=== PATIENT | female | born 1950 | race Caucasian/White ===

== ENCOUNTER 2017-03-05 18:54 | Inpatient (IN) | payer BC ==
--- NOTE | ~2017-03-05 | CN ---
Consultation Report [facility] [address] [place]. [address] NAME: CHAVO GARCIA : 48 STATUS : ADM Yung PAT#: [id number] AGE: 66 ADM/REG DATE : 03/05/17 MR#: [id number] REPORT SERV DATE: 03/06/17 DICTATED BY: WYATT JARAMILLO DATE: 03/06/17 REPORT STATUS : Draft TRANSCRIBED BY: MODL DATE: 03/06/17 CONSULT NOTE DATE OF CONSULTATION: 03/06/2017 CHIEF COMPLAINT: Hypoxemia in a patient with a probable entrapped right lung. HISTORY OF PRESENT ILLNESS: Mrs. Chavo Garcia is a very pleasant 66-year-old white female with a past medical history significant for ER/TN positive right breast cancer status post lumpectomy and radiation, gastritis, and hypertension, who presents to [facility] for an elective right-sided thoracentesis. Should be noted that Mrs. Garcia has not been hospitalized recently and has done quite well as an outpatient. Mrs. Garcia is not currently followed by patient financial representative. She is not usually require supplemental oxygen. She is on no pulmonary medications. She describes herself as a never smoker. She states that her does complain of her periodic snoring, but otherwise denies symptomatology related to obstructive sleep apnea. She describes her exercise tolerance prior to this recent illness is being excellent. Being able to walk over a city block before experiencing any shortness of breath. Again, Mrs. Garcia was diagnosed with ER/TN positive breast cancer in 1993. This is grade 1 invasive ductal carcinoma of the right breast. She did receive lumpectomy and radiation therapy. She was given five years of tamoxifen therapy. In November of this year, she did have some issues related to gastritis and eventually underwent upper endoscopy which confirmed these findings. She was placed on H2-blockers then later a PPI with some improvement in her symptomatology. During this time, she also experienced approximately a 20-pound weight loss. More recently, she developed shortness of breath that she essentially dismissed as secondary to her "getting older." She did eventually notice a knot in the crease of her lower right breast. She did eventually undergo a shave biopsy at least two weeks ago which demonstrated invasive carcinoma. It was unclear whether this was a primary eccrine carcinoma or possibly a delayed metastatic deposit from previous breast cancer. She was referred to Dr. Candido Penny, who did obtain a CT of the chest. By her report, this showed a large right pleural effusion, mediastinal lymphadenopathy, possible liver and spine lesions as well. It is thought at this time that she would benefit from a right-sided thoracentesis not only for therapeutic indications but for diagnostic information as well. She did eventually present to [facility] where she underwent a right thoracentesis under the care of Dr. Matty Hagan. He was able to remove 1.7 L of exudative pleural fluid. Followup imaging did suggest a pneumothorax ex vacuo and probable entrapped lung. The patient was admitted and placed on supplemental oxygen. For the aforementioned reasons, she has been referred to the Pulmonary Service for further assessment. Currently, Mrs. Garcia is being supported on 2 L of supplemental oxygen. Surprisingly, she denies any shortness of breath. She has no right-sided pleuritic pain. She is not producing any purulent sputum or wheezing. She has had no episodes of hemoptysis. She has Consultation Report [address] [address] NAME: CHAVO GARCIA : 48 STATUS : ADM Yung PAT#: [id number] AGE: 66 ADM/REG DATE : 03/05/17 MR#: [id number] REPORT SERV DATE: 03/06/17 DICTATED BY: WYATT JARAMILLO DATE: 03/06/17 REPORT STATUS : Draft TRANSCRIBED BY: LAZARA DATE: 03/06/17 had no vocal changes. She denies childhood history of asthma. She denies recurrent pneumonias. Again, she describes herself as a never smoker. The patient currently denies any murmurs, angina, or palpitations. That being said, she does have a history of some occasional tachycardia. She denies any orthopnea or paroxysmal nocturnal dyspnea or dependent edema. In regard to constitutional symptoms, she has had some weight loss as of late. She denies any fever chills, nausea, vomiting. She does have occasional reflux symptoms. She denies any abdominal pain or edema. PAST MEDICAL HISTORY: 1. Right breast cancer, status post lumpectomy and radiation therapy in 1993-tumor was ER/PE positive. 2. Gastritis. 3. Hypertension. PAST SURGICAL HISTORY: 1. Skin biopsy. 2. Lumpectomy. 3. Total abdominal hysterectomy. FAMILY HISTORY: The patient states there is a family history of breast cancer. She denies any known lung disease within the family. SOCIAL HISTORY: The patient is . She has two daughters, who are in good health. She previously worked at [employer]. She did have a who worked in coal mining for a period of time. However, she denies any significant exposures. TOBACCO/ALCOHOL: As previously mentioned, the patient describes herself as a never smoker. She denies any recent alcohol or illicit drug use. MEDICATIONS: Flecainide 50 mg, lansoprazole 30 mg, Hyzaar 100/25, metoprolol 25 mg. ALLERGIES: THE PATIENT HAS NO KNOWN DRUG ALLERGIES. REVIEW OF SYSTEMS: Complete review of systems was performed. The pertinent positives and negatives contained within the body of the HPI. PHYSICAL EXAMINATION: VITAL SIGNS: Blood pressure is 107/64, heart rate 79, T-max is 97.8, respiratory rate is 16, SpO2 is 97% on 2 L nasal cannula. GENERAL: Mrs. Chavo Garcia is a very pleasant 66-year-old white female, who is not currently exhibiting any signs of acute distress. Consultation Report [address] [address] NAME: CHAVO GARCIA : 48 STATUS : ADM Yung [facility]#: [id number] AGE: 66 ADM/REG DATE : 03/05/17 MR#: [id number] REPORT SERV DATE: 03/06/17 DICTATED BY: WYATT JARAMILLO DATE: 03/06/17 REPORT STATUS : Draft TRANSCRIBED BY: MODTrinity DATE: 03/06/17 SKIN: Skin with appropriate texture and turgor. On the crease line below her right breast, there is a well healing area from her previous shave biopsy. There is some nodularity to palpation at this point. HEENT: Head: Skull is normocephalic, atraumatic. Facies symmetric. No masses or lesions. Eyes: Sclerae anicteric. Conjunctivae pink without exudates. Ears: Auricles and tragus without pain to palpation. Nose: Bilateral nasal patency. Throat: Dentition in good repair. Lips, oral mucosa, tongue, palate, and pharynx pink and moist without lesions. NECK: Neck is supple. Trachea midline. No cervical lymphadenopathy appreciated. THORAX/LUNGS: Thorax is symmetric with equal chest rise. Diminished breath sounds in the right. Hyperresonance to percussion in the right lung field in comparison to dullness to percussion in the right lower. CARDIOVASCULAR: Regular rate and rhythm. No murmurs, rubs, or gallops. ABDOMEN: Soft, nondistended, nontender. PERIPHERAL VASCULAR: There is no edema. MUSCULOSKELETAL: Full AROM and PROM in all joints. NEUROLOGIC: Cranial nerves 2 through 12 grossly intact. Good muscle bulk and tone bilaterally. PSYCHIATRIC: The patient demonstrates good judgment and insight. The patient is alert and oriented x3. ACCESSORY DATA: Reveals a potassium of 3.2. White blood cell count is 11,100, hemoglobin and hematocrit 12.2 and 35.5. Chest x-ray reveals a right-sided hydropneumothorax. Pleural fluid has a protein of 4.1 in comparisons serum protein of 6.7. Cultures are negative to date. Pathology is pending. IMPRESSION: 1. Acute hypoxemic respiratory failure, currently on 2 L nasal cannula. 2. Right pneumothorax ex vacuo secondary to lung entrapment. 3. Large right exudative pleural effusion, status post thoracentesis which is concerning for malignancy. 4. 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 5. History of ER/TN positive breast cancer, status post lumpectomy, radiation, and tamoxifen. 6. Gastritis. PLAN: 1. At this time, the patient has been appropriately placed on supplemental oxygen. We will attempt to wean this as tolerated. 2. In regard to the patient's lung entrapment, if we were able to exclude the possibility of malignancy, we would recommend VATS as this is a more definitive therapy for lung entrapment. That being said, we will follow up with pathology to see if we can get an initial read on where this effusion is in fact malignant. Moving forward, cell type would help differentiate whether this is a process that would be best treated by VATS or possibly even PleurX catheter placement for palliative means. 3. Apparently, there is a CT scan which does describe metastatic disease. We will attempt Consultation Report [place] [address] [address] NAME: CHAVO GARCIA : 48 STATUS : ADM Yung PAT#: [id number] AGE: 66 ADM/REG DATE : 03/05/17 MR#: [id number] REPORT SERV DATE: 03/06/17 DICTATED BY: WYATT JARAMILLO DATE: 03/06/17 REPORT STATUS : Draft TRANSCRIBED BY: MODL DATE: 03/06/17 to have this imported into our PAC system. 4. In regard to the patient's recent skin biopsy, we will ask to have that pathology report imported as well. The aforementioned impression and plan has been discussed with Dr. Dolan, who will follow further recommendations. We thank you for this consult and look forward to participating in the care of Mrs. Chavo Garcia. WILLIAM/LAZARA Wyatt Jaramillo PA-C / [id number] CC: Sarah Mosley M.D.
--- NOTE | ~2017-03-05 | DS ---
Discharge Summary [facility] [address] [place]. [address] NAME: CHAVO CONTRERAS : 48 STATUS : DIS Yung PAT#: [id number] AGE: 66 ADM/REG DATE : 03/05/17 MR#: [id number] REPORT SERV DATE: 03/09/17 DICTATED BY: KHOI HERNANDEZ DATE: 03/08/17 REPORT STATUS : Draft TRANSCRIBED BY: MODL DATE: 03/08/17 ADMISSION DATE: 03/05/2017 DISCHARGE DATE: 03/08/2017 DISCHARGE DIAGNOSES: 1. 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 Final pathology is pending. 2. Ex vacuo pneumothorax post thoracentesis. 3. Hypertension. 4. Tachycardia. 5. Trapped lung. 6. Possibility of a recurrent effusion due to trapped lung. CONSULTANTS DURING THIS HOSPITALIZATION: Dr. Jourdan Dolan of Pulmonology, Dr. Kalen Sevilla of Cardiothoracic Surgery, Dr. Damian Hopkins of Hematology Oncology, and Dr. Ty Hagan of Interventional Radiology. INVASIVE PROCEDURES DONE DURING THIS HOSPITALIZATION: Ultrasound-guided thoracentesis with complications of trapped lung and postprocedure attempt to reinflate the lung by Dr. Ty Hagan on 03/05/2017. BRIEF HISTORY OF PRESENT ILLNESS: The patient is a 66-year-old white female, who had breast cancer 23 years ago, underwent lumpectomy and chemoradiation at that time. Was cancer free for 23 years, then had a recurrent pleural effusion, and came to the hospital as an outpatient for thoracentesis for diagnostic purposes. Post centesis, she had what appeared to be pneumothorax, so she was referred to the Hospitalist Service for further treatment and evaluation. Please refer to my H and P dictated on 03/05/2017 regarding details of her admission. HOSPITAL COURSE: After being admitted to the hospital, immediately Pulmonology was asked to see the patient. Pulmonology saw the patient in consultation and agreed that this was trapped lung and not pneumothorax. No chest tubes were inserted. Regarding the reexpansion of the lung, it would depend on what type of malignancy she had. She underwent scanning of her chest, abdomen, and pelvis. She had multiple liver lesions, so a liver biopsy was ordered. A liver biopsy was done by Dr. Ty Hagan and it was positive for malignancy. Final pathology report is still pending. Over the last three days, multiple physicians and myself have had long discussions with the family regarding options and plans of treatment. At this time, all consultants and myself agree that the reexpansion of the left lung would depend on the prognosis of her cancer. If her prognosis is greater than six months, it would be prudent to subject the patient to decortication and reexpansion of the lung. This was agreeable to Cardiothoracic Surgery in their opinion as well. This was agreeable to Pulmonology in their opinion as well and this was agreeable to Oncology as well. I discussed that with the patient and the family at the bedside and currently she is feeling well enough that she wants to go home, return back to see Dr. Penny in the outpatient setting, and then undergo future procedure depending on the prognosis of her cancer. Discharge Summary [address] [address] NAME: CHAVO CONTRERAS : 48 STATUS : DIS Yung PAT#: [id number] AGE: 66 ADM/REG DATE : 03/05/17 MR#: [id number] REPORT SERV DATE: 03/09/17 DICTATED BY: KHOI HERNANDEZ DATE: 03/08/17 REPORT STATUS : Draft TRANSCRIBED BY: LAZARA DATE: 03/08/17 DISCHARGE DISPOSITION: Home. DISCHARGE ACTIVITY: As tolerated. DISCHARGE DIET: Low sodium diet. DISCHARGE MEDICATIONS: Vitamin D 1000 units once daily, flecainide 75 mg once every 12 hours, multivitamins one tablet daily, Lopressor XL 12.5 mg twice daily, Prevacid 30 mg twice daily, losartan 100/25 mg one tablet every morning, and Tums 500 mg two tablets daily. DISCHARGE FOLLOWUP: With Dr. Candido Penny next week for further discussion of the biopsy results from the liver biopsy. More than 30 minutes spent planning this patient's discharge, reconciling medications, discussing hospital care, and followup with the patient answering all questions regarding her plan of care in the near future and documenting this discharge. DICTATED BY: Sarah Mosley/LAZARA Khoi Hernandez M.D. / [id number] CC: Sarah Mosley M.D. James Headrick Jr., M.D. Derek W Holland, M.D.
--- NOTE | ~2017-03-05 | CN ---
Consultation Report [facility] [address] [place]. [address] NAME: CHAVO CONTRERAS : 48 STATUS : DIS IN PAT#: [id number] AGE: 66 ADM/REG DATE : 03/05/17 MR#: [id number] REPORT SERV DATE: 03/11/17 DICTATED BY: MARCO SEVILLA JR. DATE: 03/11/17 REPORT STATUS : Draft TRANSCRIBED BY: MODL DATE: 03/11/17 CONSULTATION HISTORY AND PHYSICAL DATE OF CONSULTATION: 03/08/2017 REASON FOR CONSULTATION: Right-sided pneumo ex vacuo status post thoracentesis. BRIEF HISTORY: This is a 66-year-old white female with history of breast cancer who has been cancer-free for several years until recently when she had a nodule appear on her right breast and had an excisional biopsy done by her chief dispatcher. Pathology demonstrated eccrine tumor. Following the pathology, she saw Dr. Penny, and on examination, it was noted that she had a large right pleural effusion. Dr. Penny sent her for a thoracentesis and a thoracentesis was performed, at which they brought out a large amount of pleural fluid; however, she had a pneumo ex vacuo. We are asked to see her for recommendations regarding this. PAST MEDICAL HISTORY: Significant for tachycardia, hypertension, gastritis, history of right breast cancer, status post lumpectomy and radiation therapy, treated approximately 20 years ago. PAST SURGICAL HISTORY: Significant for right breast lumpectomy and hysterectomy and recent right breast excisional biopsy. SOCIAL HISTORY: She is and denies any alcohol, tobacco use, or illicit drug use. FAMILY HISTORY: Significant for a mother with breast cancer and father with heart disease. ALLERGIES: NO KNOWN DRUG ALLERGIES. HOME MEDICATIONS: Include flecainide 75 mg every 12 hours, Prevacid 30 mg twice daily, Hyzaar 100/25 one tablet daily, Lopressor 12.5 mg p.o. twice daily. REVIEW OF SYSTEMS: The patient denies any shortness of breath, fatigue, or chest pain. A complete 12-point review of systems was performed. All other systems negative except for the above-mentioned pertinent positives in the history of present illness. PHYSICAL EXAMINATION: GENERAL: This is a 66-year-old white female who is alert and oriented, in no acute distress. VITAL SIGNS: Oxygen saturation 97% on room air, blood pressure 101/56, afebrile, heart rate 84. Weight 69 kg, height 162 cm. HEENT: Normocephalic, atraumatic. Pupils equal, round, and reactive to light. Ears, nose, and throat without lesion or exudate. Consultation Report [place] [id number] [place]. [address] NAME: CHAVO CONTRERAS : 48 STATUS : DIS IN PAT#: [id number] AGE: 66 ADM/REG DATE : 03/05/17 MR#: [id number] REPORT SERV DATE: 03/11/17 DICTATED BY: MARCO SEVILLA JR. DATE: 03/11/17 REPORT STATUS : Draft TRANSCRIBED BY: LAZARA DATE: 03/11/17 NECK: Supple. No lymphadenopathy, JVD, or bruits. Trachea midline. No obvious goiter. CHEST: Symmetrical with no obvious chest wall deformities. CARDIOVASCULAR: Regular rate and rhythm. S1, S2. No murmurs or gallops. RESPIRATORY: Decreased breath sounds throughout the right, clear on the left. ABDOMEN: Soft, nontender, with positive bowel sounds in all four quadrants. No hepatosplenomegaly. : The patient voids without difficulty. Further examination was deferred. EXTREMITIES: No cyanosis or edema. SKIN: Warm and dry with normal turgor. No obvious breakdown or lesions noted. There is scarring on the right breast from recent excisional biopsy. MUSCULOSKELETAL: No obvious kyphosis or scoliosis. PSYCHIATRIC: Normal affect. She is pleasant. DATA: Laboratories dated 03/07/2017, sodium 132, potassium 3.9, BUN 13, creatinine 0.83, glucose 123. White blood cell count 11.8, hemoglobin 11.6, hematocrit 34.0, and platelet count 354. CT-guided thoracentesis dated 03/05/2017 showing several soft tissue densities in the atelectatic right lung, discrete nodule within the right upper lobe measuring 7 mm, several peripheral soft tissue densities involving the periphery of the atelectatic lung. There are tiny 2 mm nodules in the right lung, several scattered throughout the left lung, multiple sclerotic lesions in the osseous structures involving the clavicles and thoracic vertebrae, numerous low-density lesions throughout the liver consistent with metastatic disease, nodular thickening of the parietal pleura. CT-guided needle biopsy of the liver dated 03/07/2017 showing positive touch prep for malignancy. PROBLEM LIST: 1. 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 2. Liver lesion with positive touch prep. 3. Tachycardia. 4. Hypertension. 5. Gastritis. IMPRESSION AND PLAN: This is a 66-year-old female who presented with a large right pleural effusion and pneumo ex vacuo status post thoracentesis. She has a history of breast cancer approximately 20 years ago and recently had a right breast lesion, excised by her chief dispatcher that was positive for eccrine tumor and there are multiple sites of possible metastasis and she underwent a liver biopsy which demonstrated malignancy on touch prep. We were asked to see her for management of her right pneumothorax ex vacuo. Her lung is consolidated and atelectatic which possibly could represent a bronchial obstruction and the patient is to go home this afternoon while waiting for final pathology of the liver biopsy. We will arrange next week for a bronchoscopy with right thoracoscopy and placement of a PleurX catheter. We will contact the patient on Friday of next week and arrange this for later on. Thank you for this consultation. Consultation Report [address] [place]. [address] NAME: CHAVO CONTRERAS : 48 STATUS : DIS IN PAT#: [id number] AGE: 66 ADM/REG DATE : 03/05/17 MR#: [id number] REPORT SERV DATE: 03/11/17 DICTATED BY: MARCO SEVILLA JR. DATE: 03/11/17 REPORT STATUS : Draft TRANSCRIBED BY: LAZARA DATE: 03/11/17 DICTATED BY: Petrona Steward NP AM/LAZARA Marco Sevilla Jr., M.D. / [id number] CC: Sarah Mosley M.D.
--- NOTE | ~2017-03-05 | HP ---
History And Physical [place] [id number] [facility] [place] [address] NAME: CHAVO CONTRERAS : 49 STATUS : ADM Yung PAT#: [id number] AGE: 66 ADM/REG DATE : 03/05/17 MR#: [id number] REPORT SERV DATE: 03/05/17 DICTATED BY: KHOI HERNANDEZ DATE: 03/05/17 REPORT STATUS : Draft TRANSCRIBED BY: MODL DATE: 03/05/17 DATE OF ADMISSION: 03/05/2017 CHIEF COMPLAINT: Pneumothorax. HISTORY OF PRESENT ILLNESS: The patient is a 66-year-old white female, who has been followed by Dr. Candido Penny and has been cancer-free for the last two or three years. Recently started having problems and a nodule came up under her right breast. 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 Penny, and workup there revealed a large right-sided pleural effusion and widespread metastatic disease. So, Dr. Pneny referred her for thoracentesis to get a primary source of her cancer. Today, Dr. Ty Hagan performed her thoracentesis, and post-thoracentesis, she was noted to have a large ex-vacuo normal thorax. Dr. Hagan tried to do air suction with a needle and reinflate the lung, however, was not successfully done. The patient was then referred to the Hospitalist Service for further treatment, evaluation, and observation for a possible trapped lung due to metastatic disease and a chronic pleural effusion. This patient at the time of my evaluation denied any chest pain, shortness of breath, nausea, vomiting, fever, chills, or any other constitutional symptoms. REVIEW OF SYSTEMS: A 14-point review of systems is negative except this patient reports that she has lost 22 pounds of weight since November because she has been diagnosed to have gastritis. PAST MEDICAL HISTORY: Significant for tachycardia, hypertension, and gastritis; prior history of breast cancer in the right breast, status post lumpectomy with radiation therapy 23 years ago. PAST SURGICAL HISTORY: Significant for right breast lumpectomy and a hysterectomy. ALLERGIES: NO KNOWN DRUG ALLERGIES. HOME MEDICATIONS: Include Tums 500 mg two tablets daily, vitamin D 1000 units p.o. daily, flecainide 75 mg every 12 hours, Prevacid 30 mg twice daily, Hyzaar 100/25 one tablet every morning, Lopressor XL 12.5 mg p.o. twice daily, multivitamins one tablet daily. SOCIAL HISTORY: She lives with her . , fully functional in all ADL. No use of alcohol, tobacco, or illicit substances. FAMILY HISTORY: Mother with breast cancer. Father with heart disease. PHYSICAL EXAMINATION: GENERAL: White female, lying on a gurney, appears to be in no obvious respiratory distress. She is awake, alert, and she is oriented. VITAL SIGNS: At this time are stable. She is saturating 97% on room air. HEENT: Head is normocephalic, atraumatic. Pupils are equal, round, and reactive to light. Extraocular muscles are intact. Sclerae are anicteric. Conjunctivae normal. Oropharynx History And Physical [address] [address] NAME: CHAVO CONTRERAS : 49 STATUS : ADM Yung PAT#: [id number] AGE: 66 ADM/REG DATE : 03/05/17 MR#: [id number] REPORT SERV DATE: 03/05/17 DICTATED BY: KHOI HERNANDEZ DATE: 03/05/17 REPORT STATUS : Draft TRANSCRIBED BY: LAZARA DATE: 03/05/17 without lesion. Tongue protrusion midline. Uvula midline. NECK: Supple. No jugular venous distention. No carotid bruits or thyromegaly is appreciated. No lymphadenopathy in the neck is palpable. HEART: Regular rate rhythm. No murmurs, rubs, or gallops are heard. PMI nondisplaced. LUNGS: Fairly clear to auscultation on the left lung. Diminished breath sounds on the right lung, especially anteriorly and in the axillary area. ABDOMEN: Soft, nontender. Good bowel sounds. No rebound or guarding. No organomegaly. EXTREMITIES: Without cyanosis, clubbing, or edema. NEUROLOGIC: Seems to be grossly intact. LABORATORY DATA: All labs are pending at this time. IMPRESSION: 1. Right lung pneumothorax post thoracentesis. 2. Possibility of trapped lung. 3. Metastatic cancer with unknown primary, most likely breast cancer recurrence. 4. Hypertension. 5. Tachycardia. 6. Gastritis. PLAN: The patient will be admitted for observation. Pulmonary consultation will be done. I have already discussed her care with Dr. Dolan, and he will see her in the morning for further evaluation and need for possibility of decortication. We will ask Hematology- Oncology as they would need to give us an opinion if the patient is a good candidate for any further therapy before proceeding with thoracoscopy and decortication. We will check routine labs. The patient remains a full code. I have discussed her care with the patient. I have discussed the care with the patient and the at the bedside. They understand and agree with the current plan of care. LUNA/LAZARA Khoi Hernandez M.D. / [id number] CC: Sarah Mosley M.D. Derek W Holland, M.D.
[2017-03-05 11:35] LABS: PARTIAL THROMBO TIME 25.8 SEC (22.5-37.2); PROTIME (NOT ORD) 12.9 SEC (12.0-14.5)
[2017-03-05 15:53] LABS: LDH BODY FLUID (NOT ORD) 102 U/L; PROTEIN BODY FLUID 4.1 G/DL
[2017-03-05 16:38] LABS: BF TOTAL CELL CT (NOT ORD 89 /MM3; BODY FLUID RBC (NOT ORD) 556 /MM3
[2017-03-05 17:38] LABS: BD FL LYMPH (NOT ORD) 72 %; BF BASO (NOT OF) 0 %; BF LARGE MONONUCLEAR 28 %; BODY FLUID EOS (NOT ORD) 0 %; BODY FLUID SEG (NOT ORD) 0 %
[2017-03-05 17:39] LABS: BD FL SOURCE (NOT ORD) RT PLEURAL
[~2017-03-05 18:54] MED LIST: FLECAINIDE50 MG PO; HYZAAR 100/25 T1 TAB PO; MULTIVITAMI1 PO; PREV30 PO; TOPXL25 PO; TUMSROLL PO; VITAMIN D31000 UNIT PO; ZESTORETIC PO
[2017-03-06 04:22] LABS: BASOPHILS 0.2 %; BASOPHILS ABSOLUTE 0.02 10/3/uL (0.0-0.16); EOSINOPHILS 0.7 %; EOSINOPHILS ABSOLUTE 0.08 10/3/uL (0.0-0.53); HEMATOCRIT 35.5 % (36.0-48.0); HEMOGLOBIN 12.2 g/dL (12.0-16.0); IMMATURE GRANULOCYTES 0.2 %; IMMATURE GRANULOCYTES ABSOLUTE 0.02 10/3/uL (0.0-0.11); LYMPHOCYTES 16.3 %; LYMPHOCYTES ABSOLUTE 1.81 10/3/uL (0.67-4.30); MEAN CORPUS HGB CONC 34.4 g/dL (32.0-36.0); MEAN CORPUSCULAR HEMOGLOB 31.5 pg (26.0-34.0); MEAN CORPUSCULAR VOLUME 91.7 fL (80-100); MEAN PLATELET VOLUME 8.7 fL (9.2-13.0); MONOCYTES 7.4 %; MONOCYTES ABSOLUTE 0.82 10/3/uL (0.21-1.20); NEUTROPHILS 75.2 %; NEUTROPHILS ABSOLUTE 8.37 10/3/uL (2.02-8.40); PLATELET COUNT 371 10/3/uL (150-400); RED CELL COUNT 3.87 10/6/uL (4.0-5.6); WHITE BLOOD CELLS 11.1 10/3/uL (4.5-10.5)
[2017-03-06 04:31] LABS: MANUAL DIFF NO %
[2017-03-06 04:44] LABS: A/G RATIO 0.9 (0.7-1.9); ALKALINE PHOSPHATASE 87 U/L (45-117); BUN (BLOOD UREA NITROGEN) 17 MG/DL (6-23); CALCIUM, SERUM 8.9 MG/DL (8.5-10.4); CHLORIDE, SERUM 96 MMOL/L (96-112); CO2 (CARBON DIOXIDE) 30 MMOL/L (24-34); CREATININE 0.88 MG/DL (0.55-1.02); GFR AFRICAN AMERICAN 79 ML/MIN (>=60); GFR NON AFRICAN AMERICAN 68 ML/MIN (>=60); GLOBULIN 3.5 G/DL (2.5-4.1); POTASSIUM, SERUM 3.2 MMOL/L (3.5-5.3); SGOT(AST) 22 U/L (5-40); SGPT(ALT) 30 U/L (5-65); SODIUM, SERUM 133 MMOL/L (135-148); TOTAL BILIRUBIN 0.4 MG/DL (0-1.2); TOTAL PROTEIN 6.7 G/DL (6.0-8.5)
[2017-03-06 04:45] LABS: ALBUMIN 3.2 G/DL (3.5-5.0); GLUCOSE, SERUM 110 MG/DL (60-99)
[2017-03-07 05:26] LABS: BASOPHILS 0.3 %; BASOPHILS ABSOLUTE 0.03 10/3/uL (0.0-0.16); EOSINOPHILS 0.8 %; HEMOGLOBIN 11.6 g/dL (12.0-16.0); IMMATURE GRANULOCYTES 0.3 %; IMMATURE GRANULOCYTES ABSOLUTE 0.04 10/3/uL (0.0-0.11); LYMPHOCYTES 14.4 %; MEAN CORPUS HGB CONC 34.1 g/dL (32.0-36.0); MEAN CORPUSCULAR HEMOGLOB 31.9 pg (26.0-34.0); MEAN CORPUSCULAR VOLUME 93.4 fL (80-100); MEAN PLATELET VOLUME 8.8 fL (9.2-13.0); MONOCYTES 8.1 %; MONOCYTES ABSOLUTE 0.96 10/3/uL (0.21-1.20); NEUTROPHILS 76.1 %; NEUTROPHILS ABSOLUTE 8.96 10/3/uL (2.02-8.40); PLATELET COUNT 354 10/3/uL (150-400); RBC DISTRIBUTION WIDTH 12.1 % (12.0-16.0); RED CELL COUNT 3.64 10/6/uL (4.0-5.6); WHITE BLOOD CELLS 11.8 10/3/uL (4.5-10.5)
[2017-03-07 05:28] LABS: MANUAL DIFF NO %
[2017-03-07 05:35] LABS: INTERNATIONAL NORMAL RATI 1.1 UNITS (-); PROTIME (NOT ORD) 14.1 SEC (12.0-14.5)
[2017-03-07 05:43] LABS: BUN (BLOOD UREA NITROGEN) 13 MG/DL (6-23); CHLORIDE, SERUM 100 MMOL/L (96-112); CO2 (CARBON DIOXIDE) 26 MMOL/L (24-34); CREATININE 0.83 MG/DL (0.55-1.02); GFR AFRICAN AMERICAN 85 ML/MIN (>=60); GFR NON AFRICAN AMERICAN 73 ML/MIN (>=60); GLUCOSE, SERUM 123 MG/DL (60-99); PHOSPHORUS, SERUM 3.2 MG/DL (2.5-4.5); POTASSIUM, SERUM 3.9 MMOL/L (3.5-5.3); SODIUM, SERUM 132 MMOL/L (135-148)
[2017-03-08] MEDS ORDERED: ATV.5 PO (14:09)
[2017-03-17] MEDS ORDERED: SLEEP AID25 MG PO (13:18)
[2017-03-17] MEDS ORDERED: ALBUTEROL0.083 % INH (13:19)
[2017-06-23] MEDS ORDERED: IBRANCE100 (14:39)
[2017-06-23] MEDS ORDERED: FEMARA PO (14:40)
[2017-06-24] MEDS ORDERED: TYLENOL PM PO (12:15)
== END 2017-03-08 15:16 | disposition home or self-care (01) | DRG 199 ==
LOC: SSU1 18:54 → 6NO 03-06 05:26
PROVIDERS: Internal Medicine; Internal Medicine Hematology & Oncology; Physician Assistant Medical
PROC: 0W993ZX Drainage of Right Pleural Cavity, Percutaneous Approach, Diagnostic (ICD-10-PCS; principal; 2017-03-05)
PROC: 0W993ZZ Drainage of Right Pleural Cavity, Percutaneous Approach (ICD-10-PCS; 2017-03-05)
PROC: 0FB13ZX Excision of Right Lobe Liver, Percutaneous Approach, Diagnostic (ICD-10-PCS; 2017-03-07)
DX: J95.811 Postprocedural pneumothorax (principal); J96.01 Acute respiratory failure with hypoxia; C78.7 Secondary malignant neoplasm of liver and intrahepatic bile duct; J90 Pleural effusion, not elsewhere classified; I10 Essential (primary) hypertension; K29.70 Gastritis, unspecified, without bleeding; R63.4 Abnormal weight loss; Z90.710 Acquired absence of both cervix and uterus; Z85.3 Personal history of malignant neoplasm of breast; Z68.26 Body mass index [BMI] 26.0-26.9, adult; Z92.3 Personal history of irradiation; R59.1 Generalized enlarged lymph nodes
CPT/HCPCS: 32555; 47000; 71010; 71020; 80048; 80053; 83615; 83735; 84100; 84132; 84157; 85025; 85049; 85610; 85730; 87070; 87205; 88112; 88305; 88307; 88333; 88341; 88342; 88360; 89051; 94640; A9270-GY; J1170; J2250; J2405; J3010

== ENCOUNTER 2017-03-17 13:32 | Inpatient (IN) | payer BC ==
--- NOTE | ~2017-03-17 | DS ---
Discharge Summary [place] [address] [place]. [address] NAME: CHAVO CONTRERAS : 49 STATUS : DIS IN PAT#: [id number] AGE: 66 ADM/REG DATE : 03/17/17 MR#: [id number] REPORT SERV DATE: 03/19/17 DICTATED BY: ZAIRA SARABIA DATE: 03/18/17 REPORT STATUS : Draft TRANSCRIBED BY: MODL DATE: 03/18/17 ADMISSION DATE: 03/17/2017 DISCHARGE DATE: 03/18/2017 DISCHARGE DIAGNOSES: 1. Metastatic breast cancer with a new large metastatic brain lesion. 2. Recurrent pleural effusion. 3. Hypertension. 4. History of gastroesophageal reflux disease. CONSULTATION: Oncology, Dr. Penny. LABORATORY DATA: WBC is 11.9, hemoglobin 10.7, hematocrit 30.5, and platelet count is 494. Sodium is 134, potassium is 4.0, chloride is 100, CO2 is 29, BUN is 8, creatinine is 0.73, glucose is 148, calcium is 9.0, magnesium is 2.0, total protein is 6.6, albumin is 2.6, globulin is 4.0, total bilirubin is 0.3, alkaline phosphatase is 103, ALT is 43, AST is 25. IMAGING: Chest x-ray, 03/17/2017, impression: Right hydropneumothorax. Atelectasis/consolidation of the lower right lung. Minimal left basilar atelectasis and/or pleural fluid. COURSE DURING HOSPITAL STAY: Please refer to history and physical dictated by Dr. Loyda Zapata on 03/17/2017 for complete admission details. This patient is a 66-year-old female, who is a direct admission from Dr. Penny's office. She does present with an MRI of the brain and newly diagnosed metastatic lesion with edema and a 4 mm midline shift. She does present also with a history of metastatic breast cancer. The patient also presents with a history of recurrent pleural effusion with right-sided pneumo ex vacuo status after thoracentesis, history of gastritis, tachycardia, hypertension, history of right breast cancer with treatment approximately 20 years ago, lumpectomy, radiation therapy. She is currently on tamoxifen for the past five years due to recurrent disease. This patient is under the care of Dr. Penny as stated above. MRI imaging was obtained outpatient, which noted a new metastatic edema and [address] Penny has reviewed this information with Dr. Steward at [facility]. Per Dr. Penny, the patient will be transferred to [place] to be under the care of Dr. Steward to possibly undergo surgery to metastatic cranial area. The patient will be discharged home this a.m. manager [facility] is working with the patient and family regarding transfer. DISCHARGE MEDICATIONS: 1. Calcium with D 1000 units p.o. daily. 2. Dexamethasone 4 mg IV every six hours. 3. Tambocor 50 mg, 75 mg p.o. twice daily. 4. Folic acid 1 mg daily. Discharge Summary [address] [address] NAME: CHAVO CONTRERAS : 49 STATUS : DIS IN PAT#: [id number] AGE: 66 ADM/REG DATE : 03/17/17 MR#: [id number] REPORT SERV DATE: 03/19/17 DICTATED BY: ZAIRA SARABIA DATE: 03/18/17 REPORT STATUS : Draft TRANSCRIBED BY: LAZARA DATE: 03/18/17 5. Losartan/hydrochlorothiazide 100/25 mg one tablet p.o. at bedtime. 6. Multivitamin p.o. daily. 7. Toprol-XL 25 mg, 12.5 mg p.o. twice daily. 8. Protonix 40 mg one p.o. at breakfast. 9. Thiamin 100 mg one p.o. daily. 10.Tylenol 325 mg, 650 mg p.o. every four hours. 11.Colace 100 mg one p.o. twice daily p.r.n. 12.Hydrocodone 5/325 one p.o. every four hours p.r.n. 13.Ativan 0.5 mg one p.o. every six hours p.r.n. 14.Morphine 0.5 to 1 mg every four hours. 15.Zofran 4 mg p.o. sublingual p.r.n. 16.Senna two tablets p.o. p.r.n. at bedtime. 17.Hydralazine 10 mg IV every six hours p.r.n. This discharge took greater than 30 minutes. DICTATED BY: Zaira Sarabia NP [facility]/LAZARA Zaira Sarabia NP / [id number] CC: Sarah Mosley M.D.
--- NOTE | ~2017-03-17 | HP ---
History And Physical [place] [address] [facility] [place]. [address] NAME: CHAVO CONTRERAS : [birth year] STATUS : ADM IN [facility]#: [id number] AGE: 66 ADM/REG DATE : 03/17/17 MR#: [id number] REPORT SERV DATE: 03/17/17 DICTATED BY: LYODA CURRY DATE: 03/17/17 REPORT STATUS : Draft TRANSCRIBED BY: MODL DATE: 03/17/17 DATE OF ADMISSION: 03/17/2017 CHIEF COMPLAINT: Sent by Dr. Penny for MRI of the brain due to newly diagnosed metastatic lesions in the brain with edema and 4 mm midline shift. HISTORY OF PRESENT ILLNESS: This is a very pleasant 66-year-old female. She has been recently discharged from [facility] from which she has been diagnosed with new metastatic cancer of unknown type with questionable recurrent breast cancer versus another etiology. Final pathologies have been pending. She has had recurrent pleural effusion with some right-sided pneumo ex vacuo status after thoracenteses, history of gastritis, tachycardia, hypertension, history of right breast cancer with treatment about 20 years ago, lumpectomy, radiation therapy, and then tamoxifen for about five years due to recent diagnosis of metastatic cancer. The patient being a patient of Dr. Candido Penny, has been sent to MRI of the brain done as an outpatient as a part of the workup, and that has been ordered by Dr. Penny today. The patient in fact did the MRI and result of the MRI has been shown, large metastatic lesion in the right middle cranial fossa consistent with an extraaxial lesion that has grown into the brain parenchyma and with very generalized edema associated with this finding which caused some uncal herniation and 4 mm midline shift, and other small lesions are present throughout the supra and infratentorial compartment. Due to above findings, the patient has been sent to emergency room, and after discussion with Dr. Penny, the patient has been admitted to Hospitalist Service for further evaluation and recommendation by Dr. Penny. It is important to note that the patient does not have any complaints of headaches. No double vision. No weakness. No phono or photophobia. She does have some pressure in her right side when she coughs, but that is nothing new according to the patient, and obviously no chest pain or shortness of breath. No PND or orthopnea. No nausea. No vomiting. No fever. No chills. No other complaints. PAST MEDICAL HISTORY: Significant for breast cancer with lumpectomy and radiation treatment as well as tamoxifen 20 years ago. Recently diagnosed metastatic cancer, also right pleural effusion with status post thoracentesis, history of hypertension, tachycardia, and history of gastritis. PAST SURGICAL HISTORY: Include right breast lumpectomy, cholecystectomy, and hysterectomy. ALLERGIES: THE PATIENT DOES NOT HAVE ANY DRUG ALLERGIES. MEDICATIONS: At home include albuterol, Tums, vitamin D3, sleep aid, flecainide, Prevacid, Ativan, Hyzaar, Lopressor, and multivitamin. FAMILY HISTORY: Significant for coronary artery disease and cancer review. SOCIAL HISTORY: She lives with her . She is fully functional. No tobacco. No alcohol. No IV drugs. History And Physical [address] [address] NAME: CHAVO CONTRERAS : 49 STATUS : ADM IN [facility]#: [id number] AGE: 66 ADM/REG DATE : 03/17/17 MR#: [id number] REPORT SERV DATE: 03/17/17 DICTATED BY: LOYDA CURRY DATE: 03/17/17 REPORT STATUS : Draft TRANSCRIBED BY: LAZARA DATE: 03/17/17 REVIEW OF SYSTEMS: A 14-point review of systems has been obtained and pertinent positives have been listed into the history of present illness. Otherwise, negative except those underlying above. PHYSICAL EXAMINATION: VITAL SIGNS: The patient is afebrile. Blood pressure 128/58, heart rate 86, respiratory rate 18, and saturating 98% on room air. GENERAL: She is a very pleasant, well-developed, well-nourished female, in no acute distress. She is alert and oriented x3. Nonfocal. She follows commands appropriately. HEENT: Shows pupils are equal, round, and reactive to light. Normocephalic, atraumatic. Extraocular movements intact. Normal conjunctiva. Oropharynx is clear. NECK: Supple. No JVD. No carotid bruits or thyromegaly appreciated. No lymphadenopathy. Lungs: Bilateral air entry. Clear anteroposterior. Diminished breath sounds on the right more than the left. No wheezes or crackles associated. CARDIOVASCULAR: Regular rate and rhythm. Tachycardic. S1, S2 positive. No S3, no S4. No murmurs, rubs, or gallops appreciated. ABDOMEN: Soft, positive bowel sounds. Nontender. No guarding. No rebound. EXTREMITIES: No clubbing, cyanosis, or edema. NEUROLOGIC: The patient is alert and oriented x3. She is nonfocal. She follows all her commands appropriately. LABORATORY DATA: Pending. Her CMP is currently pending. Her CBC shows white count of 9.8, hemoglobin 11.1, hematocrit 32, and platelets are 518. Her MRI of the brain performed today showed large metastatic lesion in the right middle cranial fossa that is most consistent with an extraaxial lesion which has grown into the brain parenchyma and bone with very generous edema associated with this finding which can cause 4 mm shift and uncal herniation and other small lesions present throughout the infratentorial compartment. ASSESSMENT AND PLAN: 1. This is a very pleasant 66-year-old female with metastatic brain disease likely secondary to recurrent breast cancer. 2. History of hypertension. 3. History of tachycardia. 4. History of recurrent pleural effusion. 5. History of gastroesophageal reflux disease. PLAN: 1. The patient is going to be admitted to Oncology Service. I talked personally with Dr. Penny of Hemato-Oncology. I am going to start her on Decadron IV. Dr. Penny will discuss with the radiation oncologist as well as with Neurosurgery to see if there is any other recommendation that they will provide. We are going to provide supportive treatment. 2. History of tachycardia. We are going to continue her home medications. 3. History of hypertension. We are going to continue her home medication provide p.r.n. hydralazine as needed. History And Physical [address] [place]. [address] NAME: CHAVO CONTRERAS : 48 STATUS : ADM IN [facility]#: [id number] AGE: 66 ADM/REG DATE : 03/17/17 MR#: [id number] REPORT SERV DATE: 03/17/17 DICTATED BY: LOYDA CURRY DATE: 03/17/17 REPORT STATUS : Draft TRANSCRIBED BY: LAZARA DATE: 03/17/17 4. We are going to provide reasonable pain and nausea control as well as GI and DVT prophylaxis with SCDs. That has been discussed extensively with the patient as well as the . All the questions have been answered in full. The patient remains a full code according to prior wishes well stated. Further workup and recommendation pending above. CF/LAZARA Loyda Curry M.D. / [id number] CC: MD Erich Dimas II, M.D.
--- NOTE | ~2017-03-17 | CONSULT ---
Radiation Oncology Consult [address] [address] NAME: CHAVO GARCIA : 49 STATUS : DIS IN PAT#: [id number] AGE: 66 ADM/REG DATE : 03/17/17 MR#: [id number] REPORT SERV DATE: 03/18/17 DICTATED BY: AARON ESPINOSA DATE: 03/18/17 REPORT STATUS : Draft TRANSCRIBED BY: MODTrinity DATE: 03/18/17 RADIATION ONCOLOGY CONSULTATION CLINICAL SUMMARY: A 1.7 cm grade 1 invasive ductal carcinoma of the right breast, diagnosed in 1993, treated with lumpectomy, radiotherapy, as well as tamoxifen x5 years. Now with recurrence of the skin with pleural effusion, mediastinal adenopathy, liver and spine lesion, as well as new brain metastases. HISTORY OF PRESENT ILLNESS: Mrs. Garcia is a pleasant 66-year-old white female, who had previous breast cancer in 1993. She has been followed closely by Dr. Penny and has recently had a skin biopsy of a left mid chest nodule showing invasive carcinoma. Further biopsy of new liver lesion confirms breast carcinoma. Restaging scan shows a 3.9 x 2.6 x 4.2 cm lesion, possibly extra-axial with growth into the brain parenchyma, at the right middle cranial fossa. There is abundant vasogenic edema extending throughout the right temporal lobe with mass effect causing uncal herniation into the suprasellar cistern with 4 mm midline shift [id number]. Other small lesions are seen throughout the supra and infratentorial compartment. She has been hospitalized yesterday and started on Decadron. However, her only neurological symptom has been a feeling of head fullness at the times when she coughs. She also notes some slight growth of an upper chest nodule separate from the one that was biopsied. Additionally, she has had thoracentesis of the right side, performed one week ago. PAST MEDICAL HISTORY: Right-sided breast cancer, now with metastases; hypertension; tachycardia; history of gastritis. PAST SURGICAL HISTORY: Right breast lumpectomy and radiotherapy, cholecystectomy, hysterectomy. FAMILY HISTORY: Coronary artery disease as well as cancer. SOCIAL HISTORY: She is and lives with her . She denies history of smoking, alcohol abuse, recreational drug use. REVIEW OF SYSTEMS: A comprehensive review of systems was obtained. Pertinent positives and negatives are listed above. PHYSICAL EXAMINATION: GENERAL: Well-developed, well-nourished white female, lying in hospital bed, in no acute distress. Alert and oriented x4. Performance status 1. ENT: Moist mucosa. Hearing unimpaired. EYES: Sclerae anicteric. Pupils are equal, round, and reactive to light. NECK: Supple without adenopathy or thyromegaly. PULMONARY: Clear to auscultation bilaterally. Good respiratory effort. CARDIOVASCULAR: Regular rate and rhythm. No peripheral edema. Radiation Oncology Consult [address] [place]. [address] NAME: CHAVO GARCIA : 49 STATUS : DIS IN PAT#: [id number] AGE: 66 ADM/REG DATE : 03/17/17 MR#: [id number] REPORT SERV DATE: 03/18/17 DICTATED BY: AARON ESPINOSA DATE: 03/18/17 REPORT STATUS : Draft TRANSCRIBED BY: LAZARA DATE: 03/18/17 ABDOMEN: Soft, nontender, and nondistended. Positive bowel sounds. NEUROLOGIC: No focal deficits identified. Strength 5/5 in upper and lower extremities bilaterally. SKIN: No rashes or bruising. ASSESSMENT AND PLAN: 1. New brain metastases: Reasonable to presume these are from breast cancer. It seems that this metastasis may have started outside the central nervous system but pushing the brain, causing midline shift and uncal herniation. I have recommended to either proceed with surgery for immediate decompression; however, given her lack of neurological symptoms, whole brain radiotherapy alone could also reasonably be pursued. She is being transferred to [place] to further discuss care with Neurosurgery. I will arrange for whole brain radiotherapy immediately if surgery is not recommended. Otherwise, we plan for whole brain radiotherapy of 30 Gy in 10 fractions postoperatively. 2. Systemic therapy: She is followed closely by Dr. Penny. Last discussed Taxol and endocrine therapy. 3. Skin and bone lesions: These are eligible for palliative radiotherapy in the future if she develops significant symptoms related to these lesions. Of note, I have discussed her care with Dr. Yang, who was her previous radiation oncologist, and who would enjoy following up with her if this can be arranged. It is a pleasure to participate in her care. CASSIE/LAZARA Aaron Espinosa MD / [id number] CC: Sarah Mosley M.D. James E Gilbert II, MD Derek W Holland, M.D.
[~2017-03-17 13:32] MED LIST changes: +ALBUTEROL0.083 % INH; +ATV.5 PO; +SLEEP AID25 MG PO
[2017-03-17 14:17] LABS: BASOPHILS 0.3 %; BASOPHILS ABSOLUTE 0.03 10/3/uL (0.0-0.16); EOSINOPHILS 0.9 %; EOSINOPHILS ABSOLUTE 0.09 10/3/uL (0.0-0.53); ER CBC TAT 0 Hrs 08 Mins; HEMOGLOBIN 11.1 g/dL (12.0-16.0); IMMATURE GRANULOCYTES 0.3 %; IMMATURE GRANULOCYTES ABSOLUTE 0.03 10/3/uL (0.0-0.11); LYMPHOCYTES 16.6 %; LYMPHOCYTES ABSOLUTE 1.63 10/3/uL (0.67-4.30); MEAN CORPUS HGB CONC 34.7 g/dL (32.0-36.0); MEAN CORPUSCULAR HEMOGLOB 32.1 pg (26.0-34.0); MEAN CORPUSCULAR VOLUME 92.5 fL (80-100); MEAN PLATELET VOLUME 8.4 fL (9.2-13.0); MONOCYTES 8.5 %; MONOCYTES ABSOLUTE 0.83 10/3/uL (0.21-1.20); NEUTROPHILS 73.4 %; RBC DISTRIBUTION WIDTH 11.9 % (12.0-16.0); RED CELL COUNT 3.46 10/6/uL (4.0-5.6); WHITE BLOOD CELLS 9.8 10/3/uL (4.5-10.5)
[2017-03-17 14:19] LABS: MANUAL DIFF NO %; PLATELET COUNT 518 10/3/uL (150-400)
[2017-03-17 14:32] LABS: A/G RATIO 0.7 (0.7-1.9); ALBUMIN 2.9 G/DL (3.5-5.0); CALCIUM, SERUM 9.4 MG/DL (8.5-10.4); CHLORIDE, SERUM 98 MMOL/L (96-112); CREATININE 0.72 MG/DL (0.55-1.02); GFR AFRICAN AMERICAN 100 ML/MIN (>=60); GFR NON AFRICAN AMERICAN 87 ML/MIN (>=60); GLOBULIN 4.1 G/DL (2.5-4.1); POTASSIUM, SERUM 3.4 MMOL/L (3.5-5.3); SGOT(AST) 36 U/L (5-40); SGPT(ALT) 50 U/L (5-65); SODIUM, SERUM 137 MMOL/L (135-148); TOTAL BILIRUBIN 0.5 MG/DL (0-1.2)
[2017-03-17 14:33] LABS: ALKALINE PHOSPHATASE 110 U/L (45-117); BUN (BLOOD UREA NITROGEN) 7 MG/DL (6-23); CO2 (CARBON DIOXIDE) 31 MMOL/L (24-34); GLUCOSE, SERUM 97 MG/DL (60-99)
[2017-03-17 18:19] LABS: BASOPHILS 0.2 %; BASOPHILS ABSOLUTE 0.02 10/3/uL (0.0-0.16); EOSINOPHILS 0.1 %; EOSINOPHILS ABSOLUTE 0.01 10/3/uL (0.0-0.53); HEMOGLOBIN 10.9 g/dL (12.0-16.0); IMMATURE GRANULOCYTES 0.3 %; IMMATURE GRANULOCYTES ABSOLUTE 0.03 10/3/uL (0.0-0.11); LYMPHOCYTES 6.9 %; LYMPHOCYTES ABSOLUTE 0.73 10/3/uL (0.67-4.30); MEAN CORPUS HGB CONC 34.1 g/dL (32.0-36.0); MEAN CORPUSCULAR HEMOGLOB 31.1 pg (26.0-34.0); MEAN CORPUSCULAR VOLUME 91.4 fL (80-100); MEAN PLATELET VOLUME 8.8 fL (9.2-13.0); MONOCYTES 1.4 %; MONOCYTES ABSOLUTE 0.15 10/3/uL (0.21-1.20); NEUTROPHILS 91.1 %; NEUTROPHILS ABSOLUTE 9.57 10/3/uL (2.02-8.40); PLATELET COUNT 500 10/3/uL (150-400); RBC DISTRIBUTION WIDTH 12.1 % (12.0-16.0); WHITE BLOOD CELLS 10.5 10/3/uL (4.5-10.5)
[2017-03-17 18:23] LABS: MANUAL DIFF NO %
[2017-03-17 18:30] LABS: INTERNATIONAL NORMAL RATI 1.1 UNITS (-); PARTIAL THROMBO TIME 27.2 SEC (22.5-37.2); PROTIME (NOT ORD) 14.1 SEC (12.0-14.5)
[2017-03-17 18:43] LABS: A/G RATIO 0.8 (0.7-1.9); ALKALINE PHOSPHATASE 106 U/L (45-117); BUN (BLOOD UREA NITROGEN) 9 MG/DL (6-23); CALCIUM, SERUM 9.2 MG/DL (8.5-10.4); CHLORIDE, SERUM 97 MMOL/L (96-112); CO2 (CARBON DIOXIDE) 28 MMOL/L (24-34); CREATININE 0.84 MG/DL (0.55-1.02); FERRITIN 184 NG/ML (8-252); FREE T4 1.47 NG/DL (0.76-1.46); GFR AFRICAN AMERICAN 83 ML/MIN (>=60); GFR NON AFRICAN AMERICAN 72 ML/MIN (>=60); IRON BINDING CAPACITY 241 MCG/DL (225-410); IRON, SERUM 52 MCG/DL (35-150); POTASSIUM, SERUM 3.5 MMOL/L (3.5-5.3); SGOT(AST) 37 U/L (5-40); SGPT(ALT) 52 U/L (5-65); SODIUM, SERUM 133 MMOL/L (135-148); TOTAL BILIRUBIN 0.4 MG/DL (0-1.2)
[2017-03-17 18:48] LABS: GLUCOSE, SERUM 162 MG/DL (60-99)
[2017-03-17 20:29] LABS: ASCORBIC ACID (UR NOT ORDER) 20 (NEG); BILIRUBIN, URINE NEGATIVE (NEG); KETONE, URINE NEGATIVE (NEG); LEUKOCYTE ESTERASE(NOT OR TRACE (NEG); WBC (NOT ORDERED) (RFLEX) < 1 (0-5)
[2017-03-18 04:25] LABS: BASOPHILS 0 %; EOSINOPHILS 0 %; HEMATOCRIT 30.5 % (36.0-48.0); HEMOGLOBIN 10.7 g/dL (12.0-16.0); IMMATURE GRANULOCYTES 0.3 %; IMMATURE GRANULOCYTES ABSOLUTE 0.04 10/3/uL (0.0-0.11); LYMPHOCYTES 7.1 %; LYMPHOCYTES ABSOLUTE 0.85 10/3/uL (0.67-4.30); MEAN CORPUS HGB CONC 35.1 g/dL (32.0-36.0); MEAN CORPUSCULAR HEMOGLOB 32.1 pg (26.0-34.0); MEAN CORPUSCULAR VOLUME 91.6 fL (80-100); MEAN PLATELET VOLUME 8.4 fL (9.2-13.0); MONOCYTES ABSOLUTE 0.48 10/3/uL (0.21-1.20); NEUTROPHILS 88.6 %; NEUTROPHILS ABSOLUTE 10.52 10/3/uL (2.02-8.40); PLATELET COUNT 494 10/3/uL (150-400); RBC DISTRIBUTION WIDTH 11.8 % (12.0-16.0); RED CELL COUNT 3.33 10/6/uL (4.0-5.6); WHITE BLOOD CELLS 11.9 10/3/uL (4.5-10.5)
[2017-03-18 04:26] LABS: MANUAL DIFF NO %
[2017-03-18 04:40] LABS: A/G RATIO 0.7 (0.7-1.9); ALBUMIN 2.6 G/DL (3.5-5.0); ALKALINE PHOSPHATASE 103 U/L (45-117); BUN (BLOOD UREA NITROGEN) 8 MG/DL (6-23); CHLORIDE, SERUM 100 MMOL/L (96-112); CO2 (CARBON DIOXIDE) 29 MMOL/L (24-34); CREATININE 0.73 MG/DL (0.55-1.02); GFR AFRICAN AMERICAN 99 ML/MIN (>=60); GFR NON AFRICAN AMERICAN 85 ML/MIN (>=60); GLUCOSE, SERUM 148 MG/DL (60-99); SGOT(AST) 25 U/L (5-40); SGPT(ALT) 43 U/L (5-65); SODIUM, SERUM 134 MMOL/L (135-148); TOTAL BILIRUBIN 0.3 MG/DL (0-1.2); TOTAL PROTEIN 6.6 G/DL (6.0-8.5)
[2017-06-23] MEDS ORDERED: IBRANCE100 (14:39)
[2017-06-23] MEDS ORDERED: FEMARA PO (14:40)
[2017-06-24] MEDS ORDERED: TYLENOL PM PO (12:15)
== END 2017-03-18 12:18 | disposition short-term general hospital (02) | DRG 54 ==
LOC: ER 13:32 → 4EA 14:46
PROVIDERS: Emergency Medicine; Internal Medicine
DX: C79.31 Secondary malignant neoplasm of brain (principal); G93.5 Compression of brain; G93.6 Cerebral edema; J90 Pleural effusion, not elsewhere classified; C50.919 Malignant neoplasm of unspecified site of unspecified female breast; K21.9 Gastro-esophageal reflux disease without esophagitis; I10 Essential (primary) hypertension
CPT/HCPCS: 70553; 71010; 80053; 81001; 82728; 83036; 83540; 83550; 83615; 83735; 84100; 84439; 84443; 85025; 85610; 85730; 93005; 94640; 96374; 99285; A9270-GY; A9577; G0378